=== PATIENT | female | born 1965 | race African-American/Black ===

== ENCOUNTER 2022-09-02 13:47 | Emergency (ER) | payer OTHER ==
[~2022-09-02] VITALS: Ht 170.2 cm; Wt 73.0 kg
[2022-09-02 14:31] VITALS: BP 107/58; PULSE 77; RESP 19; O2SAT 100
== END 2022-09-02 18:58 | disposition left against medical advice (07) ==
LOC: ER 13:47
DX: R21 Rash and other nonspecific skin eruption (principal); R07.89 Other chest pain
CPT/HCPCS: 99281

== ENCOUNTER 2023-07-03 23:01 | Inpatient (IN) | payer MEDICAID, OTHER ==
[~2023-07-03] VITALS: Ht 170.2 cm; Wt 70.3 kg
[2023-07-03 23:51] LABS: BASOPHILS % 0.4 % (0.0-2.0); EOSINOPHILS % 1.4 % (0.0-5.0); HEMATOCRIT. 34.5 % (36.0-48.0); HEMOGLOBIN. 11.7 g/dL (12.0-16.0); MEAN CORPUSCULAR HEMOGLOBIN 31.7 pg (28.0-32.0); MEAN CORPUSCULAR VOLUME 93.2 fL (81.0-99.0); MEAN PLATELET VOLUME 7.9 fl (7.4-10.4); MONOCYTES % 4.6 % (2.0-8.0); NEUTROPHILS % 76.6 % (40.0-76.0); PLATELET 196 x1000/uL (130-400); WHITE BLOOD COUNT 7.7 x1000/uL (4.5-11.0)
[2023-07-03 23:59] LABS: CHLORIDE 108 mEq/L (98-107); POTASSIUM 3.5 mEq/L (3.5-5.1); SODIUM 140 mEq/L (136-145)
[2023-07-04] LABS: CALCIUM 9.6 mg/dL (8.7-10.4); CARBON DIOXIDE 26 mEq/L (21-32)
[2023-07-04 00:03] LABS: INR 0.9; PARTIAL THROMBOPLASTIN TIME 32.2 sec (23.4-31.0); PROTHROMBIN TIME 10.3 sec (9.6-11.0)
[2023-07-04 00:05] LABS: CREATININE 1.1 mg/dL (0.6-1.0); GLUCOSE 84 mg/dL (70-105); UREA NITROGEN BLOOD 19 mg/dL (9-23)
[2023-07-04 00:06] LABS: TROPONIN I HIGH SENSITIVITY 24 ng/L (3.0-34)
[2023-07-04 00:07] LABS: ALANINE AMINOTRANSFERASE 21 IU/L (10-49); ALBUMIN 4.2 g/dL (3.2-4.8); ASPARTATE AMINOTRANSFERASE 30 IU/L (<34); BILIRUBIN TOTAL 0.3 mg/dL (0.1-1.0); PROTEIN TOTAL 7.8 g/dL (6.0-8.3)
[2023-07-04] MEDS ORDERED: AZITHROMYCIN 500MG/250ML 250 ML IV SCH (01:45)
[2023-07-04] MEDS: CEFTRIAXONE 1GM/50ML 50 ML IV ONE (02:56)
[2023-07-04 04:18] LABS: TROPONIN I HIGH SENSITIVITY 30 ng/L (3.0-34)
[2023-07-04 04:23] VITALS: BP 112/68; PULSE 78; RESP 20; TEMP 97.6
[2023-07-04] MEDS ORDERED: NICO-681 TP (05:32)
[2023-07-04] MEDS ORDERED: IPRATROPIUM/ALBUTEROL 0.5-3(2.5)MG/3ML NEB HHN PRN (05:45)
[2023-07-04] MEDS ORDERED: [UNRECOGNIZED DRUG - CODE] (06:05)
[2023-07-04] MEDS ORDERED: DIPH25TA26 PO (06:05)
[2023-07-04 08:00] VITALS: BP 118/68; PULSE 72; RESP 18; TEMP 97
[2023-07-04] MEDS: AZITHROMYCIN 500MG/250ML 250 ML IV SCH (09:33)
[2023-07-04 13:15] VITALS: PULSE 67; RESP 18
[2023-07-04] MEDS: BUDESONIDE 0.5MG/2ML NEB HHN SCH (13:15)
[2023-07-04] MEDS: IPRATROPIUM/ALBUTEROL 0.5-3(2.5)MG/3ML NEB HHN SCH (13:15)
[2023-07-04] MEDS ORDERED: ACETAMINOPHEN 325MG TABLET PO PRN ×2 (14:00)
[2023-07-04] MEDS ORDERED: HYDROCODONE/ACETAMINOPHEN 5/325MG TABLET PO PRN (14:00)
[2023-07-04] MEDS ORDERED: DOCUSATE SODIUM 100MG CAPSULE PO PRN (14:00)
[2023-07-04] MEDS ORDERED: ONDANSETRON HCL 4MG/2ML INJ IV PRN (14:00)
[2023-07-04] MEDS ORDERED: CLONIDINE 0.1MG TABLET PO PRN (14:00)
[2023-07-04] MEDS ORDERED: NALOXONE HCL 0.4MG/ML VIAL IV PRN (14:15)
[2023-07-04 14:58] LABS: BG BASE EXCESS -0.7 mmol/L (-2.0-2.0); BG CARBOXYHEMOGLOBIN 0.2 % (0.5-1.5); BG DEOXYHEMOGLOBIN 2.6 % (0.0-5.0); BG FRACTION INSPIRED OXYGEN 21; BG HCO3 ACT 22.4 mmol/L (22.0-26.0); BG METHEMOGLOBIN 0.3 % (0.0-1.5); BG OXYGEN SATURATION 97.4 % (92.0-98.5); BG OXYHEMOGLOBIN 96.9 % (94.0-97.0); BG PCO2 32.2 mmHg (35.0-45.0); BG PO2 100.4 mmHg (75.0-100.0); BG SAMPLE SITE RIGHT BRACHIAL; BG TOTAL HEMOGLOBIN 13.2 g/dL (12.0-18.0); BG VENT MODE ROOM AIR
[2023-07-04] MEDS: DEXT 5%/0.45% NACL 1000ML 1,000 ML IV SCH (15:19)
[2023-07-04 16:00] VITALS: BP 136/92; PULSE 67; RESP 19; TEMP 97.1
[2023-07-04 16:49] LABS: BASOPHILS % 0.4 % (0.0-2.0); EOSINOPHILS % 1.9 % (0.0-5.0); HEMATOCRIT. 36.4 % (36.0-48.0); HEMOGLOBIN. 12.1 g/dL (12.0-16.0); LYMPHOCYTES % 26.9 % (20.0-50.0); MEAN CORPUSCULAR HEMOGLOBIN 30.4 pg (28.0-32.0); MEAN CORPUSCULAR HGB CONC 33.2 g/dL (31.0-37.0); MEAN CORPUSCULAR VOLUME 91.6 fL (81.0-99.0); MONOCYTES % 6.4 % (2.0-8.0); NEUTROPHILS % 64.4 % (40.0-76.0); PLATELET 197 x1000/uL (130-400); RED BLOOD CELL COUNT 3.97 mill/uL (4.2-5.4); RED CELL DISTRIBUTION WIDTH 13.9 % (11.6-14.6); WHITE BLOOD COUNT 5.2 x1000/uL (4.5-11.0)
[2023-07-04 17:05] LABS: CHLORIDE 108 mEq/L (98-107); POTASSIUM 3.9 mEq/L (3.5-5.1); SODIUM 139 mEq/L (136-145)
[2023-07-04 17:06] LABS: CALCIUM 9.7 mg/dL (8.7-10.4); CARBON DIOXIDE 25 mEq/L (21-32)
[2023-07-04 17:11] LABS: CREATININE 0.6 mg/dL (0.6-1.0); GLUCOSE 79 mg/dL (70-105); UREA NITROGEN BLOOD 13 mg/dL (9-23)
[2023-07-04 17:13] LABS: ALANINE AMINOTRANSFERASE 18 IU/L (10-49); ALBUMIN 4.4 g/dL (3.2-4.8); ASPARTATE AMINOTRANSFERASE 23 IU/L (<34); BILIRUBIN TOTAL 0.5 mg/dL (0.1-1.0); PROTEIN TOTAL 8.1 g/dL (6.0-8.3)
[2023-07-04 20:00] VITALS: BP 147/74; PULSE 72; RESP 20; TEMP 97.5
[2023-07-04 20:14] VITALS: PULSE 65; RESP 18; O2SAT 99
[2023-07-05] VITALS (9 sets, daily range): BP systolic 112–135; BP diastolic 53–74; PULSE 67–100; RESP 18–20; TEMP 97.5–97.9; O2SAT 97–99
[2023-07-05] MEDS: CEFTRIAXONE 1GM/50ML 50 ML IV SCH (01:32)
[2023-07-05] MEDS ORDERED: CEFTRIAXONE 1GM/50ML 50 ML IV SCH (03:00)
[2023-07-05 07:15] LABS: BASOPHILS % 0.7 % (0.0-2.0); EOSINOPHILS % 2.5 % (0.0-5.0); HEMATOCRIT. 37.1 % (36.0-48.0); HEMOGLOBIN. 12.4 g/dL (12.0-16.0); MEAN CORPUSCULAR HEMOGLOBIN 30.7 pg (28.0-32.0); MEAN CORPUSCULAR HGB CONC 33.5 g/dL (31.0-37.0); MEAN CORPUSCULAR VOLUME 91.7 fL (81.0-99.0); MEAN PLATELET VOLUME 8.8 fl (7.4-10.4); MONOCYTES % 9.3 % (2.0-8.0); NEUTROPHILS % 57.5 % (40.0-76.0); PLATELET 186 x1000/uL (130-400); RED BLOOD CELL COUNT 4.05 mill/uL (4.2-5.4); RED CELL DISTRIBUTION WIDTH 13.8 % (11.6-14.6); WHITE BLOOD COUNT 4.3 x1000/uL (4.5-11.0)
[2023-07-05 07:47] LABS: CALCIUM 9.1 mg/dL (8.7-10.4); CARBON DIOXIDE 24 mEq/L (21-32); CHLORIDE 106 mEq/L (98-107); POTASSIUM 3.7 mEq/L (3.5-5.1); SODIUM 138 mEq/L (136-145)
[2023-07-05 07:52] LABS: CREATININE 0.7 mg/dL (0.6-1.0); GLUCOSE 94 mg/dL (70-105)
[2023-07-05 07:53] LABS: UREA NITROGEN BLOOD 9 mg/dL (9-23)
[2023-07-05] MEDS ORDERED: LEVO750T68 MT (13:00)
[2023-07-05] MEDS: ENOXAPARIN 40MG/0.4ML SYR SUBCUT SCH (13:00)
== END 2023-07-05 18:31 | disposition home or self-care (01) | DRG 139 ==
LOC: ER 23:19 → 7WST 07-04 02:27
PROVIDERS: ADMIT Internal Medicine; ATTEND Internal Medicine
DX: J18.9 Pneumonia, unspecified organism (principal); N17.9 Acute kidney failure, unspecified; D64.9 Anemia, unspecified; F17.210 Nicotine dependence, cigarettes, uncomplicated; Z85.118 Personal history of other malignant neoplasm of bronchus and lung; Z92.3 Personal history of irradiation; Z92.21 Personal history of antineoplastic chemotherapy; Z88.0 Allergy status to penicillin
CPT/HCPCS: 36415; 36600; 71045; 71270; 73030; 73200; 74178; 80048; 80053; 82375; 82805; 83605; 83880; 84484; 85025; 85379; 93005; 93306; 94640; 99291; J0456; J0696; J1650; J7626